=== PATIENT | male | born 1990 | race Two or more races ===

== ENCOUNTER 2022-09-09 10:39 | Emergency (ER) | payer OTHER ==
[~2022-09-09] VITALS: Ht 160 cm; Wt 59.0 kg
--- NOTE | 2022-09-09 10:52 | NUR ---
BIBS C/O PAIN OF LLQ OF HIS ABDOMEN FOR THAT PAST COUPLE OF MONTHS. VITALS ARE WITHIN NORMAL LIMITS.
--- NOTE | 2022-09-09 11:06 | NUR ---
URINE COLLECTED AND SENT
[2022-09-09 11:24] LABS: BASOPHILS % (AUTO) 0.7 % (0.0-2.0); EOSINOPHILS % (AUTO) 2.3 % (0.0-6.0); HEMATOCRIT 39 % (39-51); HEMOGLOBIN 13.1 g/dL (13.5-17.5); LYMPHOCYTES # (AUTO) 1.4 K/uL (0.8-4.8); LYMPHOCYTES % (AUTO) 34.7 % (20.0-44.0); MEAN CORPUSCULAR HGB CONC 34 g/dl (31.0-36.0); MEAN CORPUSCULAR VOLUME 89 fL (80-96); MONOCYTES # (AUTO) 0.3 K/uL (0.1-1.30); MONOCYTES % (AUTO) 7.9 % (2.0-12.0); NEUTROPHILS # (AUTO) 2.2 K/uL (1.8-8.9); NEUTROPHILS % (AUTO) 54.4 % (43.0-81.0); PLATELET COUNT (AUTO) 257 K/uL (150-450); RED BLOOD CELL COUNT(AUTO) 4.33 MIL/uL (4.5-6.0)
[2022-09-09 11:43] LABS: BILIRUBIN,URINE NEGATIVE (NEGATIVE); COLOR,URINE YELLOW (YELLOW); PROTEIN,URINE NEGATIVE (NEGATIVE); UGLUCOSE NEGATIVE (NEGATIVE)
[2022-09-09 11:44] LABS: LEUKOCYTE ESTERASE ,URINE NEGATIVE (NEGATIVE); NITRITE, URINE NEGATIVE (NEGATIVE); UROBILINOGEN,URINE 0.2 EU/dL (0.2)
[2022-09-09 11:45] LABS: CALCIUM, SERUM 8.8 mg/dL (8.5-10.1); CREATININE 0.9 mg/dL (0.6-1.3); POTASSIUM 3.9 mmol/L (3.5-5.1)
[2022-09-09 11:52] LABS: BILIRUBIN,DIRECT 0.2 mg/dL (0.0-0.2); BILIRUBIN,TOTAL 0.7 mg/dL (0.2-1.0); TOTAL PROTEIN, SERUM 7.9 g/dL (6.4-8.2)
[2022-09-09] MEDS ORDERED: FAMOTIDINE (20 MG) 20 MG TABLET ONE (12:23)
[2022-09-09] MEDS: ONDANSETRON 4 MG TAB.RAPDIS SL ONE (12:26)
[2022-09-09] MEDS: FAMOTIDINE (20 MG) 20 MG TABLET PO ONE (12:26)
[2022-09-09] MEDS: MAG HYDROX/AL HYDROX/SIMETH 30 ML UDC PO ONE (12:26)
--- NOTE | 2022-09-09 12:36 | NUR ---
Patient discharged to home in stable condition. Written and verbal after care instructions given. Patient verbalizes understanding of instruction.
[2022-09-09 12:37] VITALS: BP 109/77
[2022-09-09 15:28] LABS: EOSINOPHILS % (MANUAL) 4 % (0-4); LYMPHOCYTES % (MANUAL) 35 % (16-48); MONOCYTES % (MANUAL) 9 % (0-11.0); NEUTROPHILS % (MANUAL) 52 (42-76)
== END 2022-09-09 12:37 | disposition home or self-care (01) ==
LOC: ER 10:45
DX: R10.9 Unspecified abdominal pain (principal)
CPT/HCPCS: 99284; 85025; 80048; 83690; 80076; 81003; 36415; 85007; Q0162

== ENCOUNTER 2022-10-06 15:57 | Emergency (ER) | payer OTHER ==
[~2022-10-06] VITALS: Ht 162.6 cm; Wt 59.0 kg
[2022-10-06 15:57] VITALS: BP 93/54
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
[2022-10-06] MEDS ORDERED: ACETAMINOPHEN ES 500 MG TABLET ONE (16:58)
[2022-10-06] MEDS ORDERED: ACETAMINOPHEN ES 500 MG TABLET PO ONE (17:00)
--- NOTE | 2022-10-06 17:03 | NUR ---
Patient discharged to home in stable condition. Written and verbal after care instructions given. Patient verbalizes understanding of instruction.
== END 2022-10-06 17:04 | disposition home or self-care (01) ==
LOC: ER 16:03
DX: J34.89 Other specified disorders of nose and nasal sinuses (principal)

== ENCOUNTER 2022-10-25 14:26 | Emergency (ER) | payer OTHER ==
[~2022-10-25] VITALS: Ht 154.9 cm; Wt 52.2 kg
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
[2022-10-25] MEDS ORDERED: METOCLOPRAMIDE HCL 10 MG TABLET ONE (15:54)
[2022-10-25] MEDS ORDERED: SUMATRIPTAN SUCCINATE 6 MG/0.5 ML VIAL SQ ONE ×2 (15:54→16:00)
[2022-10-25] MEDS ORDERED: KETOROLAC TROMETHAMINE INJ 30 MG/ML VIAL ONE (15:54)
[2022-10-25] MEDS ORDERED: KETOROLAC TROMETHAMINE INJ 60 MG/2 ML VIAL IM ONE (16:00)
[2022-10-25] MEDS ORDERED: METOCLOPRAMIDE HCL 10 MG TABLET PO ONE (16:00)
[2022-10-25] MEDS ORDERED: SUMA100T PO (17:07)
[2022-10-25] MEDS ORDERED: KETO10TA2 PO (17:07)
[2022-10-25 17:19] VITALS: BP 105/69
--- NOTE | 2022-10-25 17:19 | NUR ---
Patient discharged to home in stable condition. Written and verbal after care instructions given. Patient verbalizes understanding of instruction.
== END 2022-10-25 17:19 | disposition home or self-care (01) ==
LOC: ER 14:36
DX: R51.9 Headache, unspecified (principal); Z79.899 Other long term (current) drug therapy
CPT/HCPCS: 99285; 70450; 96372; J3030; J8597; J1885